=== PATIENT | female | born 1950 | race Caucasian/White ===

== ENCOUNTER → 2017-10-02 | Outpatient (CLI) | payer MEDICARE ==
--- NOTE | 2017-10-02 11:44 | REPMRS ---
Patient History The patient states she had a clinical breast exam in 10/2016. cancer at age 59. No known family history of cancer. Benign FNA biopsy of the left breast. Took hormonal contraceptives for 9 years. Taking unspecified hormones for 14 years. Digital Woman Screen Mammo: October 02, 2017 - Exam #: [id number] Bilateral CC and MLO view(s) were taken. Technologist: Lea Ball Technologist Prior study comparison: October 01, 2016, digital woman screen mammo performed at [facility]. October 11, 2014, bilateral bilat screen digital mammo, performed at [facility] ([place]). October 07, 2013, bilateral bilat screen digital mammo, performed at [facility] ([facility] FINDINGS: The breast tissue is heterogeneously dense. This may lower the sensitivity of mammography. There is a moderate amount of heterogeneously dense fibroglandular tissue which is fairly symmetric. There is no interval development of dominant mass, architectural distortion, or clustered microcalcification typical of malignancy. There has been no change in the appearance of the mammogram from the prior studies. ASSESSMENT: BI-RADS/ACR category 1 mammogram. Negative. Recommendation Routine screening mammogram of both breasts in 1 year (for women over age 40). This mammogram was interpreted with the aid of an FDA-approved computer-aided dectection system. Electronically Signed By: Jeff Medley MD 10/02/17 [id number]
== END ==
LOC: M WHC 10:35
PROVIDERS: ATTEND Family Medicine
DX: Z12.31 Encounter for screening mammogram for malignant neoplasm of breast (principal); Z92.0 Personal history of contraception

== ENCOUNTER → 2018-10-06 | Outpatient (CLI) | payer BC ==
--- NOTE | 2018-10-06 09:49 | REP ---
Clinical: Back pain with recent trauma/fall. Technique: AP, lateral, bilateral oblique and coned-down views of the lumbosacral spine. Findings: Age-related osteopenia and generalized degenerative changes include minimal endplate sclerosis and disc space narrowing most pronounced at the L5-S1 level. Alignment and lordosis maintained. There is no evidence for acute fracture / compression injury or subluxation. Impression: Age-related changes. No acute fracture / compression injury or subluxation. Electronically Signed by Gerber Maciel MD 10/06/2018 09:40 A
== END ==
LOC: M WUC 09:20
PROVIDERS: ATTEND Physician Assistant
DX: S30.0XXA Contusion of lower back and pelvis, initial encounter (principal); M85.88 Other specified disorders of bone density and structure, other site; X58.XXXA Exposure to other specified factors, initial encounter; Y92.9 Unspecified place or not applicable; M51.37 Other intervertebral disc degeneration, lumbosacral region

== ENCOUNTER → 2022-01-07 | Outpatient (REF) | payer BC, MEDICARE | LOC: M SFHCDERM 17:52 | PROVIDERS: ATTEND Physician Assistant | DX: C44.41 Basal cell carcinoma of skin of scalp and neck (principal) ==

== ENCOUNTER → 2023-02-16 | Outpatient (CLI) | payer MEDICARE | LOC: M WUC 09:46 | PROVIDERS: ATTEND Family Medicine | DX: M25.551 Pain in right hip (principal); M25.552 Pain in left hip ==